=== PATIENT | female | born 1950 | race Caucasian/White ===

== ENCOUNTER → 2016-08-06 | Outpatient (CLI) | payer MEDICARE, OTHER ==
[~2016-08-06] MED LIST: ASPIRIN81 MG PO; IRON325 M1 PO; ISOSORBIDE DINI20 MG PO; K-TAB ER20 MEQ PO; LASIX 40 MG TAB40 MG PO; LEVAQUIN750 MG PO; LOPRESSOR100 MG PO; LOSARTAN-HCTZ1 EAC1 PO; MIRAPEX0.5 MG PO; MUCINEX600 MG PO; NITROSTAT 0.40.4 MG SL; PHENOBARBITAL16.2 MG PO; PRAVASTATIN SOD40 MG PO; PREDNISONE 20 M20 MG PO; PROTONIX40 MG PO; SYMBICORT 16010.2 GM INH; THERAGRAN M TAB1 EA PO; TYLENOL 325MG325 MG PO; VENTOLIN HFA 66.7 GM INH; ZOLOFT100 MG PO; ZOLOFT50 MG PO
== END ==
LOC: RT 08:51
DX: R09.02 Hypoxemia (principal)
CPT/HCPCS: 36600; 82803

== ENCOUNTER → 2016-08-10 | Outpatient (CLI) | payer MEDICARE, OTHER | LOC: HEART 5 10:53 | DX: J84.89 Other specified interstitial pulmonary diseases (principal); R91.8 Other nonspecific abnormal finding of lung field | CPT/HCPCS: 71020-FX ==

== ENCOUNTER → 2016-10-12 | Outpatient (CLI) | payer MEDICARE, OTHER | LOC: CT 09:00 | DX: J84.89 Other specified interstitial pulmonary diseases (principal); R91.8 Other nonspecific abnormal finding of lung field | CPT/HCPCS: 71250 ==

== ENCOUNTER → 2016-10-12 | Outpatient (CLI) | payer MEDICARE, OTHER | LOC: HEART 5 10:56 | DX: J84.89 Other specified interstitial pulmonary diseases (principal) | CPT/HCPCS: 94060; 94729 ==

== ENCOUNTER 2020-08-26 09:51 | Inpatient (IN) | payer MEDICARE ==
[~2020-08-26] VITALS: Ht 149.9 cm; Wt 59.0 kg
[~2020-08-26 09:51] MED LIST changes: +ALENDRONATE SOD70 MG PO; +CLOPIDOGREL75 MG PO; +ELIQUIS 5 MG TAB5 MG PO; +FLUZONE QU60 MCG/015 IM; +IMDUR ER TAB 3030 MG PO; -ISOSORBIDE DINI20 MG PO; +KEPPRA500 MG PO; +LOPRESSOR 25 MG25 MG PO; +MOTION-TIME25 MG PO; +NORCO 5-325 TA1 EACH PO; +NORCO 7.5-3251 EACH PO; +PREDNISONE 10 M10 MG PO; +TYLENOL WITH C1 EACH PO
[2020-08-26 13:50] LABS: HEMOGLOBIN 10.8 gm/dl (12.3-15.3); RED BLOOD COUNT 3.53 M/UL (4.00-5.10); WHITE BLOOD COUNT 6.3 K/UL (4.5-11.0)
[2020-08-26 14:45] LABS: BUN/CREATININE RATIO 13 (0-10)
[2020-08-26] MEDS ORDERED: LOPRESSOR 50 MG50 MG PO (21:01)
[2020-08-26] MEDS ORDERED: CRESTOR40 MG PO (21:03)
[2020-08-27 06:27] LABS: HEMOGLOBIN 9.6 gm/dl (12.3-15.3); RED BLOOD COUNT 3.22 M/UL (4.00-5.10)
[2020-08-27 06:30] LABS: WHITE BLOOD COUNT 7.9 K/UL (4.5-11.0)
[2020-08-28 03:28] LABS: HEMOGLOBIN 9.2 gm/dl (12.3-15.3); RED BLOOD COUNT 3.06 M/UL (4.00-5.10); WHITE BLOOD COUNT 6.1 K/UL (4.5-11.0)
[2020-08-28 20:44] LABS: HEMOGLOBIN 9.7 gm/dl (12.3-15.3); RED BLOOD COUNT 3.15 M/UL (4.00-5.10)
[2020-08-28 20:47] LABS: WHITE BLOOD COUNT 8.7 K/UL (4.5-11.0)
[2020-08-29 06:43] LABS: HEMOGLOBIN 9.1 gm/dl (12.3-15.3); WHITE BLOOD COUNT 7.7 K/UL (4.5-11.0)
[2020-08-29 07:28] LABS: BUN/CREATININE RATIO 17 (0-10)
== END 2020-08-29 14:40 | disposition home or self-care (01) | DRG 246 ==
LOC: ER1 09:51 → CDU 19:03 → M/S 19:03 → PROG CARE 08-28 14:52 → CCU 08-28 18:13
PROVIDERS: Emergency Medicine; Internal Medicine Interventional Cardiology; Physician Assistant Medical; ADMIT Internal Medicine
PROC: B24BZZ4 Ultrasonography of Heart with Aorta, Transesophageal (ICD-10-PCS; principal; 2020-08-26)
PROC: 027034Z Dilation of Coronary Artery, One Artery with Drug-eluting Intraluminal Device, Percutaneous Approach (ICD-10-PCS; 2020-08-28)
PROC: B2111ZZ Fluoroscopy of Multiple Coronary Arteries using Low Osmolar Contrast (ICD-10-PCS; 2020-08-28)
PROC: 4A023N7 Measurement of Cardiac Sampling and Pressure, Left Heart, Percutaneous Approach (ICD-10-PCS; 2020-08-28)
DX: I21.3 ST elevation (STEMI) myocardial infarction of unspecified site (principal); J18.9 Pneumonia, unspecified organism; J96.11 Chronic respiratory failure with hypoxia; I21.4 Non-ST elevation (NSTEMI) myocardial infarction; I48.0 Paroxysmal atrial fibrillation; I25.10 Atherosclerotic heart disease of native coronary artery without angina pectoris; G40.909 Epilepsy, unspecified, not intractable, without status epilepticus; Z20.822 Contact with and (suspected) exposure to COVID-19; K21.9 Gastro-esophageal reflux disease without esophagitis; D69.6 Thrombocytopenia, unspecified; I10 Essential (primary) hypertension; E78.5 Hyperlipidemia, unspecified; Z79.01 Long term (current) use of anticoagulants; Z79.82 Long term (current) use of aspirin; I25.2 Old myocardial infarction; Z95.5 Presence of coronary angioplasty implant and graft; Z90.49 Acquired absence of other specified parts of digestive tract; Z98.42 Cataract extraction status, left eye; Z98.41 Cataract extraction status, right eye; Z82.49 Family history of ischemic heart disease and other diseases of the circulatory system; Z86.73 Personal history of transient ischemic attack (TIA), and cerebral infarction without residual deficits
CPT/HCPCS: ECHO; 0240U; 36415; 71045; 78452; 80048; 80053; 80061; 81001; 82550; 82553; 83605; 83690; 83735; 83874; 84484; 85025; 85027; 85347; 85379; 85610; 85730; 93005; 93017; 93306; 94760; 96374; 99152; 99153; 99285; A9502; C1725; C1760; C1769; C1874; C9600; G0378; J0360; J0461; J1644; J2250; J2270; J2785; J3010; J3246; J7030; J7040; Q9965

== ENCOUNTER → 2020-09-30 | Outpatient (CLI) | payer MEDICARE ==
[~2020-09-30] MED LIST changes: +CRESTOR40 MG PO; +LOPRESSOR 50 MG50 MG PO
== END ==
LOC: LAB 11:12
DX: R07.9 Chest pain, unspecified (principal); I50.30 Unspecified diastolic (congestive) heart failure; J84.10 Pulmonary fibrosis, unspecified; R91.8 Other nonspecific abnormal finding of lung field
CPT/HCPCS: 36415; 71045; 83880

== ENCOUNTER → 2020-12-30 | Outpatient (CLI) | payer MEDICARE | LOC: EXRD 10:31 | DX: J84.89 Other specified interstitial pulmonary diseases (principal); S22.060D Wedge compression fracture of T7-T8 vertebra, subsequent encounter for fracture with routine healing | CPT/HCPCS: 71046 ==

== ENCOUNTER 2021-01-26 18:46 | Inpatient (IN) | payer MEDICARE ==
[~2021-01-26] VITALS: Ht 149.9 cm; Wt 59.4 kg
[2021-01-26 19:43] LABS: HEMOGLOBIN 8.5 gm/dl (12.3-15.3); RED BLOOD COUNT 2.93 M/UL (4.00-5.10); WHITE BLOOD COUNT 8.5 K/UL (4.5-11.0)
[2021-01-26] MEDS ORDERED: IBUPROFEN600 MG PO (23:12)
[2021-01-26] MEDS ORDERED: PRAMIPEXOLE DI0.5 MG PO (23:20)
[2021-01-26] MEDS ORDERED: SERTRALINE HCL100 MG PO (23:22)
[2021-01-27] MEDS ORDERED: ELIQUIS2.5 MG PO (01:47)
[2021-01-28 04:09] LABS: HEMOGLOBIN 8.3 gm/dl (12.3-15.3); RED BLOOD COUNT 2.86 M/UL (4.00-5.10)
[2021-01-28 04:41] LABS: WHITE BLOOD COUNT 14.5 K/UL (4.5-11.0)
--- NOTE | 2021-01-28 20:16 | NUR ---
THE RESPIRATORY THERAPIST CAME TO DO A BREATHING TREATMENT AT 0810. THE RESPIRATORY THERAPIST DECREASED THE PATIENTS OXYGEN TO 3L NC, THEN APPLIED THE BIPAP MACHINE AT 35% FIO2 TO COMPLETE THE BREATHING TREATMENT. PT HAD A OXYGEN SATURATION OF 100% ON 10L NC AND HAD AN OXYGEN SATURATION OF 97% ON 3L NC. PT IS CONTINUING TO HAVE AN OXYGEN SATURATION OF 100% ON 35% FIO2 ON THE BIPAP. PT SHOWS NO SIGNS AND SYMPTOMS OF DISTRESS FROM THE DECREASE OF OXYGEN. PT IS LYING IN BED WITH EYES CLOSED.
[2021-01-30 05:06] LABS: HEMOGLOBIN 7.8 gm/dl (12.3-15.3); RED BLOOD COUNT 2.73 M/UL (4.00-5.10); WHITE BLOOD COUNT 11.8 K/UL (4.5-11.0)
[2021-01-31 03:30] LABS: HEMOGLOBIN 8.2 gm/dl (12.3-15.3); RED BLOOD COUNT 2.83 M/UL (4.00-5.10); WHITE BLOOD COUNT 10.7 K/UL (4.5-11.0)
[2021-02-02 03:13] LABS: HEMOGLOBIN 8.1 gm/dl (12.3-15.3); RED BLOOD COUNT 2.76 M/UL (4.00-5.10); WHITE BLOOD COUNT 11.9 K/UL (4.5-11.0)
[2021-02-03] MEDS ORDERED: CLOPIDOGREL75 MG PO (09:22)
[2021-02-03] MEDS ORDERED: PREDNISONE 20 M20 MG PO (10:22)
== END 2021-02-03 13:25 | disposition home health service (06) | DRG 196 ==
LOC: ER1 18:46 → CDU 21:39 → PROG CARE 21:39 → CCU 21:39 → PROG CARE 23:22 → CCU 01-28 12:35 → PROG CARE 01-30 17:57
PROVIDERS: Emergency Medicine; Internal Medicine; Internal Medicine Pulmonary Disease; ADMIT Internal Medicine
PROC: 5A09457 Assistance with Respiratory Ventilation, 24-96 Consecutive Hours, Continuous Positive Airway Pressure (ICD-10-PCS; principal; 2021-01-26)
DX: J84.89 Other specified interstitial pulmonary diseases (principal); J96.21 Acute and chronic respiratory failure with hypoxia; J96.22 Acute and chronic respiratory failure with hypercapnia; J18.9 Pneumonia, unspecified organism; I50.33 Acute on chronic diastolic (congestive) heart failure; E44.0 Moderate protein-calorie malnutrition; N17.9 Acute kidney failure, unspecified; Z20.822 Contact with and (suspected) exposure to COVID-19; D64.9 Anemia, unspecified; I25.10 Atherosclerotic heart disease of native coronary artery without angina pectoris; I48.0 Paroxysmal atrial fibrillation; F41.9 Anxiety disorder, unspecified; F32.A Depression, unspecified; I11.0 Hypertensive heart disease with heart failure; G89.29 Other chronic pain; I27.20 Pulmonary hypertension, unspecified; G40.909 Epilepsy, unspecified, not intractable, without status epilepticus; M81.0 Age-related osteoporosis without current pathological fracture; E78.5 Hyperlipidemia, unspecified; Z90.89 Acquired absence of other organs; Z90.49 Acquired absence of other specified parts of digestive tract; Z98.49 Cataract extraction status, unspecified eye; Z95.5 Presence of coronary angioplasty implant and graft; Z83.3 Family history of diabetes mellitus; I25.2 Old myocardial infarction; Z82.49 Family history of ischemic heart disease and other diseases of the circulatory system; Z79.01 Long term (current) use of anticoagulants; Z79.52 Long term (current) use of systemic steroids; Z79.899 Other long term (current) drug therapy; Z68.26 Body mass index [BMI] 26.0-26.9, adult
CPT/HCPCS: ECHO; 36415; 36600; 71045; 80048; 80053; 81001; 82550; 82553; 82803; 82962; 83605; 83690; 83735; 83874; 83880; 84100; 84439; 84443; 84484; 85025; 85610; 85652; 85730; 86140; 86331; 86602; 86609; 86671; 87040; 87086; 93005; 93306; 94640; 94660; 94664; 94760; 96374; 96375; 99285; C9113; J0456; J0696; J1160; J1205; J2020; J2060; J2185; J2405; J2920; J2930; J7050; U0002

== ENCOUNTER → 2021-02-21 | Outpatient (CLI) | payer MEDICARE ==
[~2021-02-21] MED LIST changes: +ELIQUIS2.5 MG PO; +IBUPROFEN600 MG PO; +PRAMIPEXOLE DI0.5 MG PO; +SERTRALINE HCL100 MG PO
== END ==
LOC: EXRD 11:04
DX: J18.9 Pneumonia, unspecified organism (principal); R91.8 Other nonspecific abnormal finding of lung field
CPT/HCPCS: 71046

== ENCOUNTER 2021-03-22 09:48 | Emergency (ER) | payer MEDICARE | END 2021-03-22 10:50 | disposition home or self-care (01) | LOC: ER1 09:48 | DX: S40.012A Contusion of left shoulder, initial encounter (principal); X58.XXXA Exposure to other specified factors, initial encounter | CPT/HCPCS: 99283 ==